=== PATIENT | female | born 1960 | race Caucasian/White ===

== ENCOUNTER 2017-12-31 12:11 | Emergency (ER) | payer BC ==
[~2017-12-31] VITALS: Ht 165.1 cm; Wt 90.7 kg
[2017-12-31 12:51] VITALS: BP 152/95
== END 2017-12-31 14:45 | disposition home or self-care (01) ==
LOC: ER 12:11
DX: M25.561 Pain in right knee (principal); E78.5 Hyperlipidemia, unspecified; I10 Essential (primary) hypertension; Z90.710 Acquired absence of both cervix and uterus
CPT/HCPCS: 73562